=== PATIENT | male | born 1945 | race Caucasian/White ===

== ENCOUNTER → 2019-04-16 07:56 | Outpatient (CLI) | payer MEDICARE, SELFPAY ==
[2019-03-26 13:34] VITALS: BMI 33.3
--- NOTE | 2019-04-16 15:06 | PFTCOMP_ITS ---
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 Respiratory therapist reports good effort and reproducible results. Interpretation: Forced expiration spirometry shows a moderate large airways obstructive ventilatory defect with an FEV1 of 70% predicted. There is no significant bronchodilator response by strict ATS criteria. Spirograms are of good quality and plateau slowly, indicating slowly emptying areas of the lungs. The respiratory flow volume loop shows decreased expiratory flow rates at all lung volumes consistent with airway obstruction. Lung volumes by body plethysmography show a reduced total lung capacity at 4.24 L, 68% predicted. All other lung volumes are reduced symmetrically. Diffusion capacity by carbon monoxide is normal at 79% predicted. The airway resistance is elevated. No previous pulmonary function tests were available for review. 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
== END ==
PROVIDERS: Family Provider Family Medicine; PCP Family Medicine; Referring Provider Internal Medicine Critical Care Medicine; Visit Provider Internal Medicine Critical Care Medicine
DX: R91.1 Solitary pulmonary nodule (principal)
CPT/HCPCS: 94060; 94726; 94729

== ENCOUNTER → 2019-06-27 12:44 | Outpatient (CLI) | payer MEDICARE, SELFPAY ==
[2019-03-26 13:34] VITALS: BMI 33.3
--- NOTE | 2019-06-27 12:46 | CT_ITS ---
STUDY: CT CHEST WITH CONTRAST REASON FOR EXAM: Male, 74 years old. Nodule on outside CT RADIATION DOSAGE (If Supplied By Facility): CTDIvol = ( 14.40 ) mGy, DLP = ( 619.20 ) mGycm TECHNIQUE: Transaxial imaging was performed following intravenous administration of 100CC IV Isovue 300. Individualized dose optimization techniques were used for this CT. COMPARISON: None. FINDINGS: There is nonspecific well marginated rounded nodule in the superior segment of the left lower lobe measuring approximately 1.1 x 1.2 cm. There is minor interstitial thickening and centrilobular emphysematous changes in the upper lobes. There is also subsegmental atelectasis in left upper lobe.. There is no demonstrated pleural abnormality. Heart is normal size however there is multivessel coronary artery calcification. Enlarged pretracheal lymph node measuring 1.86 x 1.14 cm of uncertain significance. Other smaller subcentimeter hilar and mediastinal nodes. Normal enhanced pulmonary arteries. Atherosclerotic changes of the aorta without evidence for aneurysm. There appears to be very subtle thickening of the aortic valve leaflets which may be better assessed with echocardiography if clinically warranted. Dorsal spine demonstrates mild spondylosis. Enlarged right lobe of the thyroid extending into the superior mediastinum. Left lobe is not visualized consistent with prior lobectomy Nonspecific fatty infiltration of the liver. There is diffuse hyperplasia of the adrenals. There is a simple cyst in the right kidney upper pole. CT/Chest WITH Contrast IMPRESSION: Mild chronic interstitial and emphysematous. Noncalcified well marginated solid nodule in the superior segment of left lower lobe measuring 1.1 x 1.2 cm of uncertain significance. CT-guided biopsy or PET scan would be helpful for further evaluation if indicated Other findings as above Electronically Signed: Crow Hayes MD at 17:07 EDT , Service support ,
[2019-06-27 13:16] LABS: CREATININE FINGERSTICK < 0.6 mg/dL (0.70-1.30); EGFR FINGERSTICK > 60.0000 mL/min (>60)
== END ==
PROVIDERS: Family Provider Family Medicine; PCP Family Medicine; Referring Provider Internal Medicine Critical Care Medicine; Visit Provider Internal Medicine Critical Care Medicine
DX: R91.1 Solitary pulmonary nodule (principal)
CPT/HCPCS: 71260; Q9967

== ENCOUNTER → 2019-10-22 12:36 | Outpatient (CLI) | payer MEDICARE, SELFPAY ==
[2019-07-04 12:34] VITALS: BMI 33.0
--- NOTE | 2019-10-22 12:39 | CT_ITS ---
STUDY: CT CHEST WITH CONTRAST REASON FOR EXAM: Male, 74 years old. Left lower lobe nodule. Patient has a history of multiple endocrine neoplasia. RADIATION DOSAGE (If Supplied By Facility): CTDIvol = ( 14.57 ) mGy, DLP = ( 596.60 ) mGycm TECHNIQUE: Transaxial imaging was performed following intravenous administration of IV 100mL Isovue-370. Multiplanar coronal and sagittal images were reformatted. Individualized dose optimization techniques were used for this CT. COMPARISON: Comparison is made with prior study dated June 27, 2019. FINDINGS: The patient is status post resection of the left lobe of the thyroid gland. Stable bilateral benign-appearing axillary lymph nodes. Stable appearance of the 1.1 cm x 1.1 cm noncalcific nodule in the lateral aspect of the superior segment of the left lower lobe as seen on axial image #74. Mild degree of emphysematous changes in the upper lobes with bullous formation. There is no demonstrated pleural abnormality. There are calcifications of the coronary arteries. There are multiple small lymph nodes within the mediastinum, which are normal in size and morphology most compatible with reactive lymph hyperplasia. Normal hilar regions. Normal enhanced pulmonary arteries. Normal aorta arch and descending thoracic aorta. There are mild degenerative changes of the thoracic spine. Hyperplasia of the adrenal glands. CT/Chest WITH Contrast IMPRESSION: Stable appearance of the 1.1 cm x 1.1 cm nodule in the lateral aspect of the superior segment of the left lower lobe. Stable emphysematous changes. Status post resection of the left lobe of the thyroid. Electronically Signed: Jan Bullock, at 9:47 EST , Service support ,
[2019-10-22 12:55] LABS: CREATININE FINGERSTICK 0.7 mg/dL (0.70-1.30); EGFR FINGERSTICK > 60.0000 mL/min (>60)
== END ==
PROVIDERS: Family Provider Family Medicine; PCP Family Medicine; Referring Provider Internal Medicine Critical Care Medicine; Visit Provider Internal Medicine Critical Care Medicine
DX: R91.1 Solitary pulmonary nodule (principal); R06.00 Dyspnea, unspecified
CPT/HCPCS: 71260; Q9967

== ENCOUNTER → 2020-05-01 14:51 | Outpatient (CLI) | payer MEDICARE, SELFPAY ==
[2019-10-24 12:48] VITALS: BMI 33.3
--- NOTE | 2020-05-01 14:53 | CT_ITS ---
STUDY: CT CHEST WITH CONTRAST REASON FOR EXAM: Male, 74 years old. 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 NO TX. MEN1 RADIATION DOSAGE (If Supplied By Facility): CTDIvol = ( 16.29 ) mGy, DLP = ( 746.11 ) mGycm TECHNIQUE: Transaxial imaging was performed following intravenous administration of IV 100mL Isovue-300. Individualized dose optimization techniques were used for this CT. COMPARISON: 10/22/2019 FINDINGS: Mild emphysematous changes. Mild bilateral apical scarring. There is no change in 1.1 cm noncalcified nodule peripherally left lower lobe the lungs on image 70. No new noncalcified nodule or mass. There is no demonstrated pleural abnormality. Normal heart and pericardium. Normal mediastinum. Normal hilar regions. Normal enhanced pulmonary arteries. Normal aorta arch and descending thoracic aorta. Normal osseous structures. There is no demonstrated abnormality of the visualized upper abdomen. CT/Chest WITH Contrast IMPRESSION: No change in 1.1 cm left lower lobe nodule. Follow-up CT the chest is recommended in 6 months document stability. Electronically Signed: Omid Lazo MD at 16:28 EDT Tel , Service support ,
[2020-05-01 15:11] LABS: CREATININE FINGERSTICK 0.8 mg/dL (0.70-1.30); EGFR FINGERSTICK > 60.0000 mL/min (>60)
== END ==
PROVIDERS: PCP Family Medicine; Referring Provider Internal Medicine Critical Care Medicine; Visit Provider Internal Medicine Critical Care Medicine
DX: R91.1 Solitary pulmonary nodule (principal)
CPT/HCPCS: 71260; Q9967

== ENCOUNTER → 2021-06-01 13:44 | Outpatient (CLI) | payer MEDICARE, SELFPAY ==
[2021-05-21 16:10] VITALS: BMI 33.3
--- NOTE | 2021-06-01 13:47 | CT_ITS ---
STUDY: CT CHEST WITHOUT CONTRAST REASON FOR EXAM: Male, 76 years old. Solid 1.1 cm LLL mass F/U RADIATION DOSAGE (If Supplied By Facility): CTDIvol = ( 11.57 ) mGy, DLP = ( 428.58 ) mGycm TECHNIQUE: Transaxial imaging was performed without the administration of intravenous contrast material. Multiplanar coronal and sagittal images were reformatted. Individualized dose optimization techniques were used for this CT. COMPARISON: Comparison is made with prior study dated 05/01/2020. FINDINGS: There is enlargement of the right lobe of the thyroid gland. The patient is status post left thyroidectomy. Mild degree of emphysematous changes. Stable 1.1 cm noncalcified nodule in the peripheral aspect of the left lower lobe. There is no demonstrated pleural abnormality. There are calcifications of the coronary arteries. Since prior study, there has been mild enlargement of the mediastinal lymph nodes the largest is in the precarinal space and measures 1.6 cm. Normal hilar regions. Normal unenhanced pulmonary arteries. There is atherosclerotic calcification of the aortic arch with tortuosity and elongation of the aortic arch and descending thoracic aorta. There is demineralization of the thoracic spine. There is no demonstrated abnormality of the visualized upper abdomen. CT/Chest without Contrast IMPRESSION: Stable 1.1 cm noncalcified nodule in the peripheral lateral aspect of the left lower lobe. Mild increase in size of the previously seen mediastinal lymph nodes. Status post resection of the left lobe of the thyroid. Electronically Signed: Jan Bullock MD at 15:09 EDT , Service support ,
== END ==
PROVIDERS: PCP Family Medicine; Referring Provider Nurse Practitioner Acute Care; Visit Provider Nurse Practitioner Acute Care
DX: R91.1 Solitary pulmonary nodule (principal)
CPT/HCPCS: 71250

== ENCOUNTER → 2021-08-26 12:28 | Outpatient (CLI) | payer MEDICARE, SELFPAY ==
--- NOTE | 2021-08-26 12:30 | CT_ITS ---
STUDY: CT CHEST WITH CONTRAST REASON FOR EXAM: Male, 76 years old. New mediastinal LAD RADIATION DOSAGE (If Supplied By Facility): CTDIvol = ( 16.61 ) mGy, DLP = ( 514.00 ) mGycm TECHNIQUE: Transaxial imaging was performed following intravenous administration of IV 100mL Isovue-300. Multiplanar coronal and sagittal images were reformatted. Individualized dose optimization techniques were used for this CT. COMPARISON: Comparison is made with prior examination dated 06/01/2021. FINDINGS: There is enlargement of the right lobe of the thyroid gland with substernal extension. The left lobe has been surgically resected. Hyperinflation. Stable 1.1 standard noncalcified nodule in the peripheral lateral aspect of the left lower lobe. There is no demonstrated pleural abnormality. There are calcifications of the coronary arteries. There is a 2.3 cm lymph node in the precarinal space. Multiple smaller mediastinal are seen. This is unchanged. Normal hilar regions. Normal enhanced pulmonary arteries. There is atherosclerotic calcification of the aortic arch with tortuosity and elongation of the aortic arch and descending thoracic aorta. There is demineralization of the thoracic spine. There is no demonstrated abnormality of the visualized upper abdomen. CT/Chest WITH Contrast IMPRESSION: Stable enlargement of the pretracheal lymph node. Stable 1.1 cm noncalcified nodule in the lateral aspect of the left lower lobe. Electronically Signed: Jan Bullock MD at 15:20 EDT , Service support ,
[2021-08-26 13:49] LABS: Creatinine, Serum 0.76 mg/dL (0.70-1.30); EST Glomerular Filtration Rate 107 mL/min (>60); Est Glom Filt Rate - Afr Amer 129 mL/min (>60)
== END ==
LOC: CT 12:28
PROVIDERS: PCP Family Medicine; Referring Provider Internal Medicine Critical Care Medicine; Visit Provider Internal Medicine Critical Care Medicine
DX: R59.0 Localized enlarged lymph nodes (principal); R91.1 Solitary pulmonary nodule; E31.21 Multiple endocrine neoplasia [MEN] type I
CPT/HCPCS: 36415; 71260; 82565; Q9967

== ENCOUNTER 2021-10-08 10:28 | Day surgery (SDC) | payer MEDICARE, SELFPAY ==
[2021-10-06 11:12] LABS: Platelet Count 203 K/mm3 (150-450)
[2021-10-06 11:35] LABS: International Normalized Ratio 1.1; Prothrombin Time (Protime)PT. 13.3 SECONDS (11.7-14.9)
[2021-10-06 11:36] LABS: Partial Thromboplast Time 27.8 Seconds (24.1-36.2)
[2021-10-08] VITALS (9 sets, daily range): BP systolic 118–150; BP diastolic 60–100; PULSE 56–90; RESP 16; TEMP 36.1–36.7; O2SAT 92–98; BMI 30.9
--- NOTE | 2021-10-08 | ASPIG_PTH ---
PATIENT: [facility] LOC: EN U#:[id number] AGE/SX: 76/M ROOM: RE10/08/[address]: Dr. Justo Seals MD : [id number] BED: DIS: 10/08/2021 SPEC #: [id number] RECD: 10/08/21 14:40 STATUS: YUDY SHREE #: [id number] MAXIMILIANO: 10/08/21 00:[address]: Justo Seals DEPT: CYTOLOGY RECD BY: Stu Hernandez ENTERED: 10/08/21 14:42 SP TYPE: ASP OUT OTHR DR: Dr. 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 Tissues: A - Lung, NOS B - Lung, NOS C - Lung, NOS D - Lung, NOS E - Lung, NOS F - Lung, NOS G - Lung, NOS H - Lung, NOS I - Lung, NOS J - Lung, NOS K - Lung, NOS L - Lung, NOS M - Lung, NOS N - Lung, NOS O - Lung, NOS P - Lung, NOS Q - Lung, NOS Procedures: FNA Specimen Adequacy Special Stain Group II Surgery Specimen Level IV Cytology Other HEADER OPERATION: Endobronchial ultrasound PRE-OP DIAGNOSIS: Lung nodule, mediastinal lymphadenopathy TISSUE SUBMITTED: A - EBUS, TBNA, site 4R #1, B - EBUS, TBNA, site 4R #2, C - EBUS, TBNA, site 4R #3, D - EBUS, TBNA, site 4R #4, E - EBUS, TBNA, site 4R #5, F - EBUS, TBNA, site 4R #6, G - EBUS, TBNA, site 7 #7, H - EBUS, TBNA, site 7 #8, I - EBUS, TBNA, site 7 #9, J - EBUS, TBNA, site 7 #10, K - EBUS, TBNA, site 7 #11, L - EBUS, TBNA, site 7 #12, M - EBUS, TBNA, site 10R #13, N - EBUS, TBNA, site 10R #14, O - EBUS, TBNA, site 4R, P - EBUS, TBNA, site 7, Q - EBUS, TBNA, site 10R DIAGNOSIS CYTOLOGY A. EBUS, TBNA, site 4R #1 (smears) Predominantly respiratory epithelial cells noted. Negative for malignant cells. B. EBUS, TBNA, site 4R #2 (smears): Paucicellular specimen. Rare respiratory epithelial cells and lymphocytes are noted. Negative for malignant cells. C. EBUS, TBNA, site 4R #3 (smears): Rare respiratory epithelial cells. Paucicellular specimen. D. EBUS, TBNA, site 4R #4 (smears): Adequate for evaluation. Lymphocytes present. Negative for malignant cells. E. EBUS, TBNA, site 4R #5 (smears): Adequate for evaluation. Lymphocytes and respiratory epithelial cells noted. Negative for malignant cells. F. EBUS, TBNA, site 4R #6 (smears): Adequate for evaluation. Lymphocytes and respiratory epithelial cells noted. Negative for malignant cells. G. EBUS, TBNA, site 7 #7 (smears): Predominantly respiratory epithelial cells noted. Negative for malignant cells. H. EBUS, TBNA, site 7 #8 (smears): Predominantly respiratory epithelial cells noted. Negative for malignant cells. I. EBUS, TBNA, site 7 #9 (smears): Predominantly respiratory epithelial cells noted. Negative for malignant cells. J. EBUS, TBNA, site 7 #10 (smears): Predominantly respiratory epithelial cells noted. Negative for malignant cells. K. EBUS, TBNA, site 7 #11 (smears): Adequate for evaluation. Lymphocytes and respiratory epithelial cells noted. Negative for malignant cells. L. EBUS, TBNA, site 7 #12 (smears): Lymphocytes and respiratory epithelial cells noted. Negative for malignant cells. M. EBUS, TBNA, site 10R #13 (smears): Lymphocytes and respiratory epithelial cells noted. Negative for malignant cells. N. EBUS, TBNA, site 10R #14 (smears): Predominantly respiratory epithelial cells noted. Negative for malignant cells. O. EBUS, TBNA, site 4R fluid (cell block): Small lymphocytes are noted. Negative for malignant cells. P. EBUS, TBNA, site 7 fluid (cell block): Hyaline cartilage and tissue, respiratory epithelial tissue and rare lymphocytes are noted. Negative for malignant cells. Q. EBUS, TBNA, site 4R fluid (cell block): Paucicellular specimen, rare lymphocytes are noted. Negative for malignant cells. SJ:jarred 10/11/2021 COMMENT The specimen is evaluated at the time of procedure by Dr. Santiago. Rapid Onsite Evaluation: A. EBUS, TBNA, site 4R #1: Predominantly respiratory epithelial cells noted. Negative for malignant cells. B. EBUS, TBNA, site 4R #2: Paucicellular specimen. Rare respiratory epithelial cells and lymphocytes are noted. Negative for malignant cells. C. EBUS, TBNA, site 4R #3: Rare respiratory epithelial cells. Paucicellular specimen. D. EBUS, TBNA, site 4R #4: Adequate for evaluation. Lymphocytes present. Negative for malignant cells. E. EBUS, TBNA, site 4R #5: Adequate for evaluation. Lymphocytes and respiratory epithelial cells noted. Negative for malignant cells. F. EBUS, TBNA, site 4R #6: Adequate for evaluation. Lymphocytes and respiratory epithelial cells noted. Negative for malignant cells. G. EBUS, TBNA, site 7 #7: Predominantly respiratory epithelial cells noted. Negative for malignant cells. H. EBUS, TBNA, site 7 #8: Predominantly respiratory epithelial cells noted. Negative for malignant cells. I. EBUS, TBNA, site 7 #9: Predominantly respiratory epithelial cells noted. Negative for malignant cells. J. EBUS, TBNA, site 7 #10: Predominantly respiratory epithelial cells noted. Negative for malignant cells. K. EBUS, TBNA, site 7 #11: Adequate for evaluation. Lymphocytes and respiratory epithelial cells noted. Negative for malignant cells. L. EBUS, TBNA, site 7 #12: Lymphocytes and respiratory epithelial cells noted. Negative for malignant cells. M. EBUS, TBNA, site 10R #13: Lymphocytes and respiratory epithelial cells noted. Negative for malignant cells. N. EBUS, TBNA, site 10R #14: Predominantly respiratory epithelial cells noted. Negative for malignant cells. Flow cytometry study from [facility] shows no evidence of B-cell or T-cell lymphoma. Please see complete report in patient?s EMR. Correlation with clinical, radiologic findings and appropriate follow up are necessary. Case has been reviewed in consultation with Dr. Shields who concurs with the above diagnosis. IDC:AM CYTOLOGY STUDY Slides are reviewed. CYTOLOGY GROSS A - Received labeled with the patient's name and and designated EBUS, TBNA, site 4R #1. The specimen consists of two stained smears for DONNA (Rapid Onsite Evaluation). B - Received labeled with the patient's name and and designated EBUS, TBNA, site 4R #2. The specimen consists of two stained smears for DONNA. C - Received labeled with the patient's name and and designated EBUS, TBNA, site 4R #3. The specimen consists of two stained smears for DONNA. D - Received labeled with the patient's name and and designated EBUS, TBNA, site 4R #4. The specimen consists of two stained smears for DONNA. E - Received labeled with the patient's name and and designated EBUS, TBNA, site 4R #5. The specimen consists of two stained smears for DONNA. F - Received labeled with the patient's name and and designated EBUS, TBNA, site 4R #6. The specimen consists of two stained smears for DONNA. G - Received labeled with the patient's name and and designated EBUS, TBNA, site 7 #7. The specimen consists of two stained smears for DONNA. H - Received labeled with the patient's name and and designated EBUS, TBNA, site 7 #8. The specimen consists of two stained smears for DONNA. I - Received labeled with the patient's name and and designated EBUS, TBNA, site 7 #9. The specimen consists of two stained smears for DONNA. J - Received labeled with the patient's name and and designated EBUS, TBNA, site 7 #10. The specimen consists of two stained smears for DONNA. K - Received labeled with the patient's name and and designated EBUS, TBNA, site 7 #11. The specimen consists of two stained smears for DONNA. L - Received labeled with the patient's name and and designated EBUS, TBNA, site 7 #12. The specimen consists of two stained smears for DONNA. M - Received labeled with the patient's name and and designated EBUS, TBNA, site 10R #13. The specimen consists of two stained smears for DONNA. N - Received labeled with the patient's name and and designated EBUS, TBNA, site 10R #14. The specimen consists of two stained smears for DONNA. O - Received in RPMI is 20 ml of pink, needle rinsed fluid labeled with the patient's name and and designated EBUS, TBNA, site 4R. The specimen is submitted for cell block preparation. P - Received in RPMI is 20 ml of pink, needle rinsed fluid labeled with the patient's name and and designated EBUS, TBNA, site 7. The specimen is submitted for cell block preparation. Q - Received in RPMI is 20 ml of pink, needle rinsed fluid labeled with the patient's name and and designated EBUS, TBNA, site 10R. The specimen is submitted for cell block preparation. Note, O-Q, half of the specimen is sent to [facility] for flow cytometry studies. / SJ:rg 10/08/2021 TC:5 CPT: 04411 x3, 86562 x3, 26862 x3, [id number] x11
[2021-10-08] MEDS: Lactated Ringers 1,000 ML 15 ML IV ×2 (11:28→14:00)
--- NOTE | 2021-10-08 11:39 | PCM.HP.BLA ---
History and Physical Date of Admission: 10/08/21 Patient seen and examined independently prior to surgery. All questions were answered. There is been no significant change compared to presurgical assessment. Okay to proceed with the procedure. Possible complications were reviewed. 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 Mediastinal mass has enlarged in size from 1.6 cm to now at 2.3 cm. Discussed with the patient that at this time it would be best to try to identify the nature of that lymph node. He had previously discussed the possibility of an endobronchial ultrasound-guided biopsy with Dr. Seals. At this time that is what we will pursue. The patient will have some blood work prior to bronchoscopy to make sure that he is not at an increased risk for bleeding. He is not currently on any blood thinners, I do not anticipate that he will be at any increased risk. He would like an influenza vaccination today, this will be provided. We will plan to follow-up with him after test results with final pathology to determine a plan. The patient has had an opportunity to ask any questions and they have been answered. He has been encouraged that if he develops any additional questions he should contact our office. He is agreeable with this plan. Discussed the case with Dr. Seals and plan for EBUS. I have spent 31 minutes today reviewing labs, records and history. Time includes coordinating care, interpretation of tests, discussion with patient's other health care provider. This also includes time I spent with the patient for exam, treatment plan and education as well as documenting clinical information. Follow Up: 1 Month ([facility]) HPI 3 M FU Chief Complaint: Test results HPI Comments Details: This patient presents to the office today to discuss recent test results. He is ambulatory and currently on room air. He has not been seen in the ED or urgent care for any respiratory illnesses since his last office visit. He has not required any antibiotics or prednisone for any breathing problems. Currently he denies any shortness of breath. He denies any wheezing, chest tightness, chest pain or palpitations. He denies any cough, sputum production or hemoptysis. He has not had any fever, chills or body aches. Test results personally reviewed with the patient: CT scan of the chest with contrast completed on August 26, 2021. Stable 1.1 cm noncalcified nodule in the peripheral and lateral aspect of the left lower lobe. There is a 2.3 cm lymph node in the precarinal space, previously measured 1.6 cm. Intake Vital Signs 09/02/21 08:28 Height 5 ft 9 in Weight: 217 lb BP 158/78 H Blood Pressure Location Rt brachial Position Sitting Respiration 18 Pulse 81 Pulse Source Monitor Temp 98.0 F Temperature Source Tympanic Pulse Oximetry (%) 97 Oxygen Delivery Method room air Comment MANUAL Intake Visit Reasons: 3 M FU Allergies No Known Allergies Allergy (Unverified 09/02/21 09:55) Medications atorvastatin 20 mg tablet See Rx Instructions PO .COMPLEX 03/25/19 [History Confirmed 09/02/21] blood sugar diagnostic #10 ea 03/25/19 [History Confirmed 09/02/21] calcitriol 0.5 mcg capsule 0.5 mcg PO DAILY 03/25/19 [History Confirmed 09/02/21] calcium carbonate 600 mg calcium (1,500 mg) tablet 600 mg PO DAILY tab 03/25/19 [History Confirmed 09/02/21] clonazepam 0.5 mg tablet 0.5 mg PO BID 03/25/19 [History Confirmed 09/02/21] insulin aspart U-100 100 unit/mL (3 mL) subcutaneous pen See Rx Instructions SC BID 03/25/19 [History Confirmed 09/02/21] insulin glargine 100 unit/mL (3 mL) subcutaneous pen 30 unit SC DAILY 03/25/19 [History Confirmed 09/02/21] latanoprost 0.005 % eye drops 1 drp OPHTHALMIC QPM 03/25/19 [History Confirmed 09/02/21] losartan 100 mg tablet 100 mg PO DAILY 03/25/19 [History Confirmed 09/02/21] venlafaxine 75 mg tablet,extended release 24 hr 75 mg PO DAILY 03/25/19 [History Confirmed 09/02/21] [facility] [place] Medical History (Reviewed 09/02/21 @ 10:05 by Maryellen Houston ASSISTANT CUSTOMER SERVICE MANAGER, ASSISTANT CUSTOMER SERVICE MANAGER-C) Depression Diabetes Hyperlipidemia Hypertension Multiple endocrine neoplasia PANCREAS TUMOR REMOVED Surgical History S/P removal of parathyroid gland Family History Father Colon cancer Sister Cancer Social History Smoking Status: Former smoker Tobacco: How many years used: 53 second hand exposure: Yes alcohol intake: never substance use type: does not use caffeine: Yes Type: coffee Number of servings: 4 Review of Systems Resp Respiratory: Yes as per HPI Exam Const Constitutional: Positive conversant, cooperative, in no acute respiratory distress, healthy appearing, well developed, well nourished and good hygiene Head Head: Yes normocephalic and Yes atraumatic Eyes Eye: Positive clear conjunctiva; Negative nystagmus Ears Ear: Positive hard of hearing, external ears normal and other Hearing aids in place Nose Nose: Yes other (Face mask in place) Neck Neck: Positive normal visual inspection, full ROM and trachea midline Chest Wall Chest: Positive normal inspection of the chest and symmetric chest movement Resp lung sounds: Positive clear to auscultation, good air exchange and normal expiratory time; Negative wheezes, rhonchi, rales or use of accessory muscles Cardio Cardiac: Positive regular rate, regular rhythm, S1 normal and S2 normal; Negative murmur, rub or gallop GI GI: Positive normal to inspection Genitourinary: Positive deferred Musc Musculoskeletal: Positive steady gait; Negative using an assistive device for ambulation, kyphosis or scoliosis Skin Pulmonary Skin Exam: Positive intact; Negative lesion, rash, ulcers or erythema Extremities Extremities: No clubbing and No cyanosis Neuro Neurologic: Yes no focal neuro deficits, Yes conversant, Yes cooperative, Yes normal cognition, Yes normal coordination, Yes normal concentration and Yes understands questions Psych Appearance: Positive grossly normal Mental Status: Positive mental status grossly normal Mood: Positive congruent mood Affect: Positive normal affect Assessment & Plan Assessment/Plan (1) Lung nodule: (2) Mediastinal lymphadenopathy:
[2021-10-08 11:40] LABS: Bedside Glucose 186 mg/dL (70-110)
[2021-10-08] MEDS: Lidocaine 2% Jelly 1 APPLIC Tube (13:05)
--- NOTE | 2021-10-08 14:34 | EKG12_ITS ---
Test Reason : POST OP Blood Pressure : / mmHG Vent. Rate : 076 BPM Atrial Rate : 076 BPM P-R Int : 154 ms QRS Dur : 102 ms QT Int : 464 ms P-R-T Axes : 049 -20 034 degrees QTc Int : 522 ms Poor data quality, interpretation may be adversely affected Normal sinus rhythm Inferior infarct , age undetermined Marked ST abnormality, possible anterior subendocardial injury Prolonged QT Abnormal ECG No previous ECGs available Confirmed by FLORESITA KING, CRISTHIAN ([id number]), brands editor CAR MEYER ([id number]) on 10/11/2021 2:06:06 PM Referred By: Justo Seals Confirmed By:CRISTHIAN CANAS MD
--- NOTE | 2021-10-08 14:46 | OP.BRONCH_ITS ---
Patient Name: Celso Angela Procedure Date: 10/08/2021 10:52 AM Date of : 1945 Age: 76 Procedure: Bronchoscopy Indications: Mediastinal adenopathy Providers: Justo Seals MD Referring MD: Justo Seals MD Medicines: See the Anesthesia note for documentation of the administered medications Complications: No immediate complications Procedure: Pre-Anesthesia Assessment: - Prior to the procedure, a History and Physical was performed, and patient medications and allergies were reviewed. The patient's tolerance of previous anesthesia was also reviewed. The risks and benefits of the procedure and the sedation options and risks were discussed with the patient. All questions were answered, and informed consent was obtained. Prior Anticoagulants: The patient has taken no previous anticoagulant or antiplatelet agents. ASA Grade Assessment: III - A patient with severe systemic disease. After reviewing the risks and benefits, the patient was deemed in satisfactory condition to undergo the procedure. After I obtained informed consent, the scope was passed under direct vision. Throughout the procedure, the patient's blood pressure, pulse, and oxygen saturations were monitored continuously. The ultrasound bronchoscope was introduced through the mouth, via laryngeal mask airway and advanced to the tracheobronchial tree. The bronchoscope was introduced through the mouth, via laryngeal mask airway and advanced to the tracheobronchial tree. The procedure was accomplished without difficulty. The patient tolerated the procedure well. Findings: Left Lung Abnormalities: Partially obstructing (about 80% obstructed) dynamic collapse was found throughout the left tracheobronchial tree. Transbronchial needle aspiration of a lesion was performed in the right paratracheal area, in the subcarinal area and in the right hilum using an Olympus EBUS-TBNA 19 gauge needle and sent for routine cytology and flow cytometry. The procedure was guided by ultrasound. 14 were obtained. Rapid On-Site Evaluation (DONNA): Preliminary cytology of the lesions in the right paratracheal area, in the subcarinal area and in the right hilum was suggestive of benign-appearing lymphoid tissue (final results are pending). The scope was withdrawn and replaced with the EBUS bronchoscope to accomplish the ultrasound examination. Lymph Nodes: An endobronchial ultrasound endoscope was utilized to systematically examine the right lower paratracheal region (level 4R), subcarinal mediastinum (level 7) and right hilar region (level 10R) in order to assist with fine needle aspiration. Lymph node sizing was performed via endobronchial ultrasound for suspected lung cancer. Sampling by transbronchial needle aspiration was also performed using an Olympus EBUS-TBNA 19 gauge needle in the right lower paratracheal region (level 4R), subcarinal mediastinum (level 7) and right hilar region (level 10R) and sent for routine cytology and flow cytometry. - The 4R (lower paratracheal) node was 25 mm by EBUS. Six samples with the needle were obtained. - The 7 (subcarinal) node was 34 mm by EBUS. Six samples with the needle were obtained. - The 10R (hilar) node was 20 mm by EBUS. Two samples with the needle were obtained. Lymph Nodes: Lymph Nodes: Rapid On-Site Evaluation (DONNA): The cellularity of the specimen was adequate in the right lower paratracheal region (level 4R), subcarinal mediastinum (level 7) and right hilar region (level 10R). The cellularity of the specimen was adequate in the subcarinal mediastinum (level 7). Impression: - Mediastinal adenopathy - Dynamic collapse was found throughout the tracheobronchial tree. - A transbronchial needle aspiration was performed. - Rapid On-Site Evaluation (DONNA): Preliminary cytology of the lesion in the right paratracheal area, in the subcarinal area and in the right hilum was suggestive of benign-appearing lymphoid tissue (final results are pending). - Endobronchial ultrasound was performed. - Lymph node sizing and sampling was performed. The diagnosis is benign inflammatory changes. - Rapid On-Site Evaluation (DONNA): The cellularity of the specimen was adequate in node level 4R, node level 7 and node level 10R and the cellularity of the specimen was adequate in node level 7. Recommendation: - The patient will be observed post-procedure, until all discharge criteria are met. - Await cytology results. - Follow up with bronchoscopist within several days. - Patient has a contact number available for emergencies. The signs and symptoms of potential delayed complications were discussed with the patient. Return to normal activities tomorrow. Written discharge instructions were provided to the patient. Procedure Code(s): --- Professional --- 03843, Bronchoscopy, rigid or flexible, including fluoroscopic guidance, when performed; with endobronchial ultrasound (EBUS) guided transtracheal and/or transbronchial sampling (eg, aspiration[s]/biopsy[ies]), 3 or more mediastinal and/or hilar lymph node stations or structures 19747, Bronchoscopy, rigid or flexible, including fluoroscopic guidance, when performed; with transbronchial needle aspiration biopsy(s), trachea, main stem and/or lobar bronchus(i) 73370, Bronchoscopy, rigid or flexible, including fluoroscopic guidance, when performed; with transendoscopic endobronchial ultrasound (EBUS) during bronchoscopic diagnostic or therapeutic intervention(s) for peripheral lesion(s) (List separately in addition to code for primary procedure[s]) Diagnosis Code(s): --- Professional --- R59.0, Localized enlarged lymph nodes J98.09, Other diseases of bronchus, not elsewhere classified I88.9, Nonspecific lymphadenitis, unspecified CPT copyright 2017 [employer]. All rights reserved. The codes documented in this report are preliminary and upon block out machine operator review may be revised to meet current compliance requirements. MD Justo Uribe MD 10/08/2021 2:45:53 PM This report has been signed electronically. Number of Addenda: 0 Note Initiated On: 10/08/2021 10:52 AM
== END 2021-10-08 15:45 | disposition home or self-care (01) ==
LOC: EN 10:29 → AC 10:30
PROVIDERS: Nurse Practitioner Acute Care; PCP Family Medicine; Referring Provider Internal Medicine Critical Care Medicine; Visit Provider Internal Medicine Critical Care Medicine
PROC: BB4BZZZ Ultrasonography of Pleura (ICD-10-PCS; CPT 31629; principal; 2021-10-08 11:30)
DX: R91.1 Solitary pulmonary nodule (principal); I88.9 Nonspecific lymphadenitis, unspecified; E31.20 Multiple endocrine neoplasia [MEN] syndrome, unspecified; I10 Essential (primary) hypertension; F32.A Depression, unspecified; E11.9 Type 2 diabetes mellitus without complications; E78.5 Hyperlipidemia, unspecified; Z79.4 Long term (current) use of insulin; Z79.899 Other long term (current) drug therapy; Z87.891 Personal history of nicotine dependence; R06.02 Shortness of breath
CPT/HCPCS: 31629; 31653; 31654; 36415; 82962; 85049; 85610; 85730; 88161; 88172; 88305; 88313; 93005; J7120; J2405

== ENCOUNTER 2021-12-14 13:06 | Outpatient (CLI) | payer MEDICARE, SELFPAY ==
--- NOTE | 2021-12-14 13:10 | CT_ITS ---
EXAM: CT CHEST WITHOUT INTRAVENOUS CONTRAST : 1945 CLINICAL INDICATION: follow lung nodule TECHNIQUE: Helically acquired images were obtained of the chest without intravenous contrast. This CT exam was performed using one or more of the following dose reduction techniques: automated exposure control, adjustment of the mA and/or kV according to patient size, and/or use of iterative reconstruction technique. This report was created using [employer] report generation technology. COMPARISON: 08/26/2021 FINDINGS: LUNGS AND PLEURAL SPACES: There is a well-circumscribed soft tissue nodule the left lower lobe that measures 1.2 x 1.4 cm on today's exam which is not significantly changed from the previous exam. No pleural effusion or thickening. No pneumothorax. HEART: There are coronary artery calcifications present. Heart size is normal. No pericardial effusion. MEDIASTINUM: Unremarkable. No mediastinal or hilar adenopathy. Esophagus is unremarkable. No hiatal hernia. THYROID: Unremarkable. No thyroid lesions. BONES/JOINTS: Unremarkable. No suspicious lytic or blastic abnormality. VASCULATURE: Unremarkable. Thoracic aorta is non-dilated. LYMPH NODES: Extensive mediastinal adenopathy however there is been a decrease in size with the largest node in pretracheal space measuring 1.1 x 1.8 cm on today's exam compared to 2.0 x 2.6 cm on the previous exam. CT/Chest without Contrast IMPRESSION: 1. Stable pulmonary nodule in the left lower lobe. There is no acute pulmonary abnormality. 2. Interval decrease in size of mediastinal adenopathy. Individualized dose optimization techniques were used for this CT. at 0119 Reported and signed by: Montana Mcdermott MD Electronically Signed: Montana Mcdermott MD at 1:18 EST ,
== END 2021-12-14 23:59 | disposition home or self-care (01) ==
LOC: CT 13:09
PROVIDERS: PCP Family Medicine; Referring Provider Nurse Practitioner Acute Care; Visit Provider Nurse Practitioner Acute Care
DX: R91.1 Solitary pulmonary nodule (principal)
CPT/HCPCS: 71250

== ENCOUNTER → 2022-05-31 | Outpatient (CLI) | payer MEDICARE, SELFPAY ==
--- NOTE | 2022-05-31 14:50 | CT_ITS ---
STUDY: CT CHEST WITH CONTRAST REASON FOR EXAM: Male, 77 years old. Mediastinal LAD, MEN. History of lung nodule. RADIATION DOSAGE (If Supplied By Facility): CTDIvol = ( 15.90 ) mGy, DLP = ( 608.14 ) mGycm TECHNIQUE: Transaxial imaging was performed following intravenous administration of IV 100mL Isovue-300. Multiplanar coronal and sagittal images were reformatted. Individualized dose optimization techniques were used for this CT. COMPARISON: Comparison is made with prior examination dated 12/14/2021. FINDINGS: CHEST A right-sided portacatheter is seen with the tip in the superior vena cava. Stable small benign-appearing bilateral axillary lymph nodes. Emphysematous changes with bullous formation in the upper lobes. Hyperinflation. A well-circumscribed noncalcified nodule is seen in the anterior lateral aspect of the left lower lobe as seen on axial image #81. It measures 1 cm. This is slightly smaller than on prior examination. There is no demonstrated pleural abnormality. There are calcifications of the coronary arteries. Minimal anterior pericardial thickening. There are multiple small lymph nodes within the mediastinum, which are normal in size and morphology most compatible with reactive lymph hyperplasia. Normal hilar regions. Normal unenhanced pulmonary arteries. Atherosclerotic calcific plaques of the aortic arch. There are multi-level degenerative changes of the thoracic spine. Stable nodular enlargement of the right adrenal gland. Small cyst in the upper pole of the right kidney. CT/Chest WITH Contrast IMPRESSION: Slight decrease in size of the well circumscribed nodule in the anterior lateral aspect of the left lower lobe. The remainder of the examination is unchanged. Electronically Signed: Jan Bullock MD at 12:41 EDT ,
[2022-05-31 15:21] LABS: CREATININE FINGERSTICK < 0.9 mg/dL (0.70-1.30); EGFR FINGERSTICK > 60.0000 mL/min (>60)
== END | disposition home or self-care (01) ==
LOC: CT 14:49
PROVIDERS: PCP Family Medicine; Visit Provider Internal Medicine Critical Care Medicine
DX: R91.1 Solitary pulmonary nodule (principal); R59.0 Localized enlarged lymph nodes
CPT/HCPCS: 71260; Q9967